=== PATIENT | female | born 1980 | race Two or more races ===

== ENCOUNTER 2020-06-27 14:58 | Emergency (ER) | payer SELFPAY ==
--- NOTE | 2020-06-27 15:37 | ER Document Report ---
ED Medical Screen (RME) - General Chief Complaint: Nausea/Vomiting/Diarrhea Stated Complaint: VOMITING Time Seen by Provider: 06/27/20 15:24 Mode of Arrival: Ambulatory Information source: Patient Notes: 39-year-old female presents to ED for complaint of f headache nausea vomiting and dizziness that started on Friday. She states she was driving and she has not been able to drive since then due to the dizziness and headache. She states when the headache gets feel bad. Mainly her right morning and then she turns very pale. She states she has not had any diarrhea or just the nausea and vomiting. I did use oxyacetylene burner [place] from the [employer] for this interview. She is alert oriented respirations regular nonlabored speaking in full sentences. She does have a history of carpal tunnel that she needs surgery for and she has had her gallbladder removed. She states she is currently on her menstrual cycle. I have greeted and performed a rapid initial assessment of this patient. A comprehensive ED assessment and evaluation of the patient, analysis of test results and completion of medical decision making process will be conducted by an additional ED providers. Physical Exam - Vital signs Vitals: Temp Pulse Resp BP Pulse Ox 98.3 F 72 20 128/82 H 97 06/27/20 15:15 06/27/20 15:15 06/27/20 15:15 06/27/20 15:15 06/27/20 15:15 Course - Vital Signs Vital signs: Temp Pulse Resp BP Pulse Ox 98.3 F 72 20 128/82 H 97 06/27/20 15:15 06/27/20 15:15 06/27/20 15:15 06/27/20 15:15 06/27/20 15:15
[2020-06-27 16:20] LABS: ABSOLUTE BASOPHILS # (AUTO) 0.1 10^3/uL (0.0-0.2); ABSOLUTE EOSINOPHILS # (AUTO) 0.1 10^3/uL (0.0-0.6); ABSOLUTE LYMPHOCYTES (AUTO) 1.9 10^3/uL (0.5-4.7); EOSINOPHILS % (AUTO) 1.5 % (0-6); TOTAL CELLS COUNTED % (AUTO) 100 %
[2020-06-27 16:25] LABS: ABSOLUTE MONOCYTES (AUTO) 0.4 10^3/uL (0.1-1.4); HEMATOCRIT 42.4 % (36.0-47.0); LYMPHOCYTES % (AUTO) 29.1 % (13-45); MEAN CORPUSCULAR HEMOGLOBIN 29.4 pg (27.0-33.4); MEAN CORPUSCULAR HGB CONC 33.2 g/dL (32.0-36.0); MEAN CORPUSCULAR VOLUME 89 fl (80-97); MONOCYTES % (AUTO) 6.5 % (3-13); PLATELET COUNT 300 10^3/uL (150-450); RED BLOOD COUNT 4.78 10^6/uL (3.72-5.28); RED CELL DISTRIBUTION WIDTH 13.8 % (11.5-14.0); SEGMENTED NEUTROPHILS % (AUTO) 61.9 % (42-78); WHITE BLOOD COUNT 6.4 10^3/uL (4.0-10.5)
[2020-06-27 16:39] LABS: ALBUMIN 4.8 g/dL (3.5-5.0); ALKALINE PHOSPHATASE 117 U/L (38-126); ANION GAP 7 (5-19); ASPARTATE AMINO TRANSFERASE 32 U/L (14-36); BILIRUBIN,DIRECT 0.1 mg/dL (0.0-0.4); BILIRUBIN,TOTAL 0.4 mg/dL (0.2-1.3); BLOOD UREA NITROGEN 12 mg/dL (7-20); CALCIUM 9.8 mg/dL (8.4-10.2); CARBON DIOXIDE 31 mmol/L (22-30); CHLORIDE 102 mmol/L (98-107); GLUCOSE 90 mg/dL (75-110); POTASSIUM 4.2 mmol/L (3.6-5.0); TOTAL PROTEIN 8.4 g/dL (6.3-8.2)
[2020-06-27] MEDS ORDERED: METOCLOPRAMIDE HCL INJ/PF 10 MG/2 ML SDV IV ONE (18:56)
[2020-06-27] MEDS ORDERED: MECLIZINE HCL 12.5 MG TABLET PO ONE (18:56)
[2020-06-27] MEDS ORDERED: NORMAL SALINE 500 ML IV ONE (18:57)
[2020-06-27] MEDS ORDERED: DIPHENHYDRAMINE HCL 50 MG/ML VIAL IV ONE (18:57)
--- NOTE | 2020-06-27 19:02 | RADIOLOGY REPORT (SQ) ---
EXAM DESCRIPTION: CT HEAD WITHOUT IMAGES COMPLETED DATE/TIME: 06/27/2020 6:44 pm REASON FOR STUDY: headache COMPARISON: None. TECHNIQUE: Axial images acquired through the brain without intravenous contrast. Images reviewed wi th bone, brain and subdural windows. Additional sagittal and coronal reconstructions were generated. Images stored on PACS. All CT scanners at this facility use dose modulation, iterative reconstruction, and/or weight based d osing when appropriate to reduce radiation dose to as low as reasonably achievable (ALARA). [facility]: Dose Right [facility]: CareDose [facility]: Dose Right [facility]: Teradose 4D [facility]: [place] RADIATION DOSE: CT Rad equipment meets quality standard of care and radiation dose reduction techniq ues were employed. CTDIvol: 53.2 mGy. DLP: 1070 mGy-cm. mGy. LIMITATIONS: None. FINDINGS: VENTRICLES: Normal size and contour. CEREBRUM: No masses. No hemorrhage. No midline shift. No evidence for acute infarction. Normal gra y/white matter differentiation. No areas of low density in the white matter. CEREBELLUM: No masses. No hemorrhage. No alteration of density. No evidence for acute infarction. EXTRAAXIAL SPACES: No fluid collections. No masses. ORBITS AND GLOBE: No intra- or extraconal masses. Normal contour of globe without masses. CALVARIUM: No fracture. PARANASAL SINUSES: No fluid or mucosal thickening. SOFT TISSUES: No mass or hematoma. OTHER: No other significant finding. IMPRESSION: NORMAL BRAIN CT WITHOUT CONTRAST. EVIDENCE OF ACUTE STROKE: NO. COMMENT: Quality ID # [id number]: Final reports with documentation of one or more dose reduction techniques (e.g., Automated exposure control, adjustment of the mA and/or kV according to patient size, use of iterative reconstruction technique) TECHNICAL DOCUMENTATION: JOB ID: [id number] 2010 [employer]- All Rights Reserved Reading location - IP/workstation name: [email or web address]
[2020-06-27 19:55] LABS: APPEARANCE,URINE CLEAR; BILIRUBIN,URINE NEGATIVE (NEGATIVE); COLOR,URINE STRAW; GLUCOSE, URINE NEGATIVE (NEGATIVE); KETONES,URINE NEGATIVE (NEGATIVE); LEUKOCYTE ESTERASE,URINE NEGATIVE (NEGATIVE); NITRITE,URINE NEGATIVE (NEGATIVE); PROTEIN,URINE NEGATIVE (NEGATIVE); UROBILINOGEN,URINE NEGATIVE mg/dL (<2.0)
--- NOTE | 2020-06-27 20:02 | ER Document Report ---
Entered by BRAVO HELM SCRIBE 06/27/20 190 Acting as scribe for:HILARY HUITRON DO ED General - General Chief Complaint: Headache Stated Complaint: VOMITING Time Seen by Provider: 06/27/20 15:24 Primary Care Provider: YOLY VENCES [Primary Care Provider] - Follow up as needed Mode of Arrival: Ambulatory Information source: Patient Notes: This 39-year-old female patient presents to the emergency with complaint of headache with associated dizziness and vomiting for the last week. Patient denies any trauma or history of migraine headaches. - Related Data Allergies/Adverse Reactions: No Known Allergies Allergy (Verified 06/27/20 16:20) Past Medical History - General Information source: Patient - Social History Smoking Status: Never Smoker Cigarette use (# per day): No Frequency of alcohol use: None Drug Abuse: None Lives with: Family Family History: Reviewed & Not Pertinent - Medical History Medical History: Negative Surgical Hx: Negative Review of Systems - Review of Systems Constitutional: No symptoms reported EENT: No symptoms reported Cardiovascular: See HPI, Dizziness Respiratory: No symptoms reported Gastrointestinal: No symptoms reported Genitourinary: No symptoms reported Female Genitourinary: No symptoms reported Musculoskeletal: No symptoms reported Skin: No symptoms reported Hematologic/Lymphatic: No symptoms reported Neurological/Psychological: See HPI, Headaches -: Yes All other systems reviewed and negative Physical Exam - Vital signs Vitals: Temp Pulse Resp BP Pulse Ox 98.3 F 72 20 128/82 H 97 06/27/20 15:15 06/27/20 15:15 06/27/20 15:15 06/27/20 15:15 06/27/20 15:15 - Notes Notes: Physical Exam: General: Alert, appears well. HEENT: Normocephalic. Atraumatic. PERRL. Extraocular movements intact. Oropharynx clear. Neck: Supple. Non-tender. Respiratory: No respiratory distress. Clear and equal breath sounds bilaterally. Cardiovascular: Regular rate and rhythm. Abdominal: Normal Inspection. Non-tender. No distension. Normal Bowel Sounds. Back: No gross abnormalities. Extremities: Moves all four extremities. Upper extremities: Normal inspection. Normal ROM. Lower extremities: Normal inspection. No edema. Normal ROM. Neurological: Normal cognition. AAOx4. Normal speech. Psychological: Normal affect. Normal Mood. Skin: Warm. Dry. Normal color. Course - Re-evaluation Re-evalutation: 06/27/20 20:04 39 year old with headache and dizziness. Nausea and vomiting also. Viral illne ss likely. Nontoxic and safe for follow up. 06/27/20 21:42 Apparently pt in the adjacent room had the initial ct of the brain. This was discovered as this pt was being discharged and felt better. Her ct was obtained and reviewed when she was about to be discharged. The head ct shows no acute a bnormality. The error in the ct was discussed with the staff and there will be further investigation to prevent similar occurence in the future. Pt understands to return here for worsening symptoms or other problems or concerns. - Vital Signs Vital signs: Temp Pulse Resp BP Pulse Ox 98.4 F 71 16 111/65 97 06/27/20 21:49 06/27/20 21:49 06/27/20 21:49 06/27/20 21:49 06/27/20 21:49 - Laboratory Results Result Diagrams: 06/27/20 16:03 06/27/20 16:03 Laboratory Results Interpreted: 06/27/20 06/27/20 16:03 19:22 Carbon Dioxide 31 H Total Protein 8.4 H Urine Blood SMALL H Critical Laboratory Results Reviewed: No Critical Results - Radiology Results Critical Radiology Results Reviewed: No Critical Results Discharge - Discharge Clinical Impression: Vertigo Headache Qualifiers: Headache type: other headache syndrome Qualified Code(s): G44.89 - Other headache syndrome Condition: Stable Disposition: HOME, SELF-CARE Instructions: Antinausea Medication ([facility]), Reglan ([facility]), Vomiting ([facility]) Additional Instructions: Rest, fluids, medicines as directed. Please return here for persistent vomiting, other problems or other concerns. Take the dizziness medicine as needed for dizziness. Prescriptions: Meclizine HCl [Antivert 12.5 mg Tablet] 12.5 mg PO TID #21 tablet Ondansetron [Zofran Odt 4 mg Tablet] 1 - 2 tab PO Q4H PRN #15 tab.rapdis PRN Reason: For Nausea/Vomiting Referrals: LOCALMD,NO [Primary Care Provider] - Follow up as needed Print Language: Chinese I personally performed the services described in the documentation, reviewed and edited the documentation which was dictated to the scribe in my presence, and it accurately records my words and actions.
--- NOTE | 2020-06-27 21:29 | RADIOLOGY REPORT (SQ) ---
EXAM DESCRIPTION: CT HEAD WITHOUT IV CONTRAST. 9:00 PM COMPLETED DATE/TME: 06/27/2020 21:05 CLINICAL HISTORY: 39 years, Female, headache COMPARISON: CT from today at 6:30 PM TECHNIQUE: Axial images without IV contrast. Sagittal coronal reconstruction. This exam was performed according to our departmental dose-optimization program, which includes automated exposure control, adjustment of the mA and/or kV according to patient size and/or use of iterative reconstruction technique.. Images stored on PACS. FINDINGS: Normal size ventricles. No acute intra-axial or extra-axial abnormalities. Paranasal sinuses and bony calvarium are unremarkable. IMPRESSION: No acute findings intracranially. The study was titled as a noncontrast study. There appears to be faint IV contrast in the brain. No information regarding injection is provided. There is no overt abnormal enhancement.
[2020-06-27 21:50] VITALS: BP 111/65
== END 2020-06-27 21:57 | disposition home or self-care (01) ==
LOC: ER 14:58
DX: G44.89 Other headache syndrome (principal); R11.10 Vomiting, unspecified; R42 Dizziness and giddiness
CPT/HCPCS: 99285; 96361; 96374; 96375; 36415; 87086; 83690; 84703; 85025; 80053; 81001; 70450; J1200; J3490; J2765; J7040